=== PATIENT | female | born 1960 | race Caucasian/White ===

== ENCOUNTER 2022-09-09 08:22 | Outpatient (CLI) | payer BC, OTHER ==
--- NOTE | 2022-09-09 15:21 | XRAY Report ---
PROCEDURE: Lumbar Spine Complete INDICATIONS: PROLONGED, WORSENING PAIN TECHNIQUE: 4 views of the lumbar spine were acquired. COMPARISON: None. FINDINGS: Bones: 5 [id number] vertebrae are present. . Mild right convexity curvature centered at L1-L2. Moderate multilevel degenerative changes with disc height loss, endplate spurring, and facet arthrop athy. No definite pars defects identified on the oblique views. Suspect mild-moderate multilevel bony foraminal stenosis. No vertebral body compression fractures. No suspicious bony lesions. Soft tissues: Overlying bowel gas pattern is normal. No suspicious soft tissue calcifications. IMPRESSION: Moderate multilevel degenerative changes of the lumbar spine. Reviewed by: Zafar Lugo MD on 09/09/2022 3:19 PM PST Approved by: Zafar Lugo MD on 09/09/2022 3:19 PM PST Station ID: [id number]
--- NOTE | 2022-09-09 15:48 | XRAY Report ---
PROCEDURE: Hip w/Pelvis 2-3V LT INDICATIONS: PROLONGED, WORSENING PAIN TECHNIQUE: AP pelvis with lateral view(s) of the left hip(s). COMPARISON: None. FINDINGS: Bones: No fractures or dislocations. Pelvic ring appears intact. No suspicious bony lesions. Mild degenerative changes of both hips. Soft tissues: The visualized bowel gas pattern is normal. No suspicious soft tissue calcifications. IMPRESSION: 1. Mild degenerative changes of both hips. 2. If symptoms persist, follow-up radiographs and/or CT or MRI may be helpful for further evaluation. Reviewed by: Zafar Lugo MD on 09/09/2022 3:47 PM PST Approved by: Zafar Lugo MD on 09/09/2022 3:47 PM PST Station ID: [id number]
== END 2022-09-09 08:23 | disposition home or self-care (01) ==
LOC: DI 08:22
PROVIDERS: ATTEND Nurse Practitioner Family
DX: M51.36 Other intervertebral disc degeneration, lumbar region (principal); M47.816 Spondylosis without myelopathy or radiculopathy, lumbar region; M16.0 Bilateral primary osteoarthritis of hip